=== PATIENT | female | born 1970 | race Caucasian/White ===

== ENCOUNTER 2024-06-18 11:47 | Emergency (ER) | payer MEDICAID, SELFPAY ==
[2024-06-18 11:57] VITALS: BP 172/129; BP 179/138; PULSE 97; RESP 18; TEMP 37; O2SAT 98; BMI 31.8
[2024-06-18 12:04] VITALS: BP 179/138; PULSE 97
[2024-06-18] MEDS: NIFEdipine 10 MG CAPSULE 20 MG PO (12:04)
[2024-06-18] MEDS: cloNIDine HCL 0.1 MG TABLET PO (12:04)
[2024-06-18 12:58] VITALS: BP 137/86; RESP 88
--- NOTE | 2024-06-18 13:02 | EDNOTE_ITS ---
ED Medical Clearance RME/HPI General Chief complaint: Medical Clearance Stated complaint: SENIOR CARE CLEARANCE Time Seen by Provider: 06/18/24 11:56 Arrival date/time: 06/18/24 11:47 54-year-old female presents to the emergency department today in the custody of the [facility] patient is here for medical clearance for incarceration patient was found to have elevated blood pressure at the alf and was referred to the ER for further evaluation Limitations: no limitations Related Information Allergies Allergy/AdvReac Type Severity Reaction Status Date / Time No Known Allergies Allergy Verified 01/03/18 22:14 Review of Systems Review of Systems Systems Reviewed: All systems reviewed, normal except as documented Constitutional Constitutional: Reports system reviewed and no additional complaints, except as documented, Denies fever(s) and Denies headache(s) Eyes Eyes: Reports system reviewed and no additional complaints, except as documented and Denies blurry vision ENT Ears, Nose, Mouth, and Throat: Reports system reviewed and no additional complaints, except as documented, Denies headache(s), Denies nasal congestion and Denies nasal discharge Cardiovascular Cardiovascular: Reports system reviewed and no additional complaints, except as documented, Denies chest pain and Denies dyspnea Respiratory Respiratory: Reports system reviewed and no additional complaints, except as documented, Denies chest congestion, Denies cough and Denies dyspnea Gastrointestinal Gastrointestinal: Reports system reviewed and no additional complaints, except as documented and Denies abdominal pain Integumentary/Breasts Skin/Breast: Reports system reviewed and no additional complaints, except as documented and Denies rash Neurologic Neurologic: Reports system reviewed and no additional complaints, except as documented, Reports as per HPI and Denies headache(s) Past Medical History Social History SMOKING STATUS: Current some day smoker ED Exam General Limitations: Present no limitations General appearance: Present alert and in no apparent distress Head Head exam: Present atraumatic Eye Eye exam: Present normal appearance, PERRL and EOMI ENT ENT exam: Present normal exam, normal oropharynx and mucous membranes moist Neck Neck exam: Present normal inspection, full ROM and trachea midline Chest Chest inspection: Present normal inspection and symmetric chest wall rise Respiratory Respiratory exam: Present normal lung sounds bilaterally; Absent respiratory distress or wheezes Cardiovascular Cardiovascular exam: Present regular rate, normal rhythm and normal heart sounds; Absent bradycardia, tachycardia or irregular rhythm Abdominal Exam Abdominal exam: Present soft and normal bowel sounds Extremities Exam Extremities exam: Present normal inspection and full ROM Back Exam Back exam: Present normal inspection and full ROM Neurological Exam Neurological exam: Present alert, oriented X3 and CN II-XII intact Psychiatric Psychiatric exam: Present normal affect and normal mood Skin Skin exam: Present warm, dry, intact and normal color Course Quality Measures none Orders Category Date Time Status NIFEdipine [Procardia] Med 06/18/24 11:58 Discontinued 20 mg PO X1 ONE cloNIDine HCL [Catapres] Med 06/18/24 11:58 Discontinued 0.1 mg PO X1 ONE Vital Signs Vital signs: Vital Signs Temperature 98.6 F 06/18/24 11:57 Pulse Rate 97 06/18/24 11:57 Respiratory Rate 18 06/18/24 11:57 Blood Pressure 179/138 H 06/18/24 11:57 Pulse Oximetry (%) 98 06/18/24 11:57 Oxygen Delivery Method Room Air 06/18/24 11:57 O2 saturation 98% room air within normal limits Medical Clearance MDM Narrative MDM Narrative:: 54-year-old female presents to the emergency department today in the custody of the [facility] patient is here for medical clearance for incarceration patient was found to have elevated blood pressure at the alf and was referred to the ER for further evaluation Patient reports no chest pain no shortness of breath no headache dizziness or weakness Patient reports no complaints whatsoever patient does state that she has not taken her blood pressure medication in about 6 months Patient given medication for blood pressure here which brought her blood pressure down to a normal range At the time of reevaluation patient reports no chest pain no shortness of breath no headache dizziness weakness patient be discharged to alf at this time Patient data External records reviewed:: [facility] previous records Clinical information provided by:: patient Social determinants that could affect healthcare access:: none Patient has the following chronic illnesses:: Hypertension How is presenting disease/condition affected by chronic disease/condition?: caused by Evaluation data The following diagnostics were reviewed and interpreted by me:: other (specify) (N/A) Lab and/or radiology exams considered but not ordered:: Consider not ordered Interpretation Summary: N/A Medications / Prescriptions Medications or Prescriptions considered but not ordered:: Given Medication administrations:: Medication Administration History Discontinued Medications Clonidine (Clonidine Hcl 0.1 Mg Tablet) 0.1 mg PO X1 ONE Stop: 06/18/24 11:59 Last Admin: 06/18/24 12:04 Dose: 0.1 mg Documented By: ITZEL Nifedipine (Nifedipine 10 Mg Capsule) 20 mg PO X1 ONE Stop: 06/18/24 11:59 Last Admin: 06/18/24 12:04 Dose: 20 mg Documented By: OA Given Consultations Consultation(s) initiated? (list below): No Diagnosis Medical Clearance Differential Diagnosis: other (Medical clearance for incarceration) Most likely diagnosis given after review of the tests above:: Hypertension Admission Indicated Admission indicated?: not indicated Admission Request Was there a request for admission?: No Disposition Plan Disposition Plan: Discharge Discharge Attestation Discharge Attestation: The patient and all family members were given an opportunity to ask questions and understood the discharge instructions. Discharge instructions specifically effects, indications for sooner follow up or return to the emergency department, and the expected course of current diagnosis. 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
== END 2024-06-18 14:44 ==
LOC: SERX 15:07
PROVIDERS: Emergency Provider Emergency Medicine
DX: Z02.89 Encounter for other administrative examinations (principal); I10 Essential (primary) hypertension; Z91.148 Patient's other noncompliance with medication regimen for other reason
CPT/HCPCS: 99282; A9270